=== PATIENT | female | born 1960 | race Caucasian/White ===

== ENCOUNTER 2019-06-27 10:10 | Emergency (ER) | payer OTHER ==
[~2019-06-27] VITALS: Ht 157.5 cm; Wt 63.1 kg
[2019-06-27] MEDS ORDERED: IV NORMAL SALINE 1000ML BAG 1,000 ML IV ONE ×3 (10:45→12:00)
[2019-06-27 10:57] LABS: BILIRUBIN,URINE NEGATIVE (NEG); CLARITY,URINE CLEAR; COLOR,URINE YELLOW; NITRITE,URINE NEGATIVE (NEG); PROTEIN,URINE NEGATIVE (NEG-TRACE); UROBILINOGEN,URINE 0.2 mg/dL (0.2 mg/dL)
[2019-06-27 11:06] LABS: SQUAMOUS EPITHELIAL CELL,UR FEW /LPF
[2019-06-27 11:07] LABS: BACTERIA,URINE 0 /HPF (0-FEW); WBC,URINE 0 /HPF (0-4)
[2019-06-27 11:11] LABS: BASO % 1 % (0-3); EOS # 0.1 x10^3/uL (0.0-0.7); EOS % 2 % (0-3); HEMOGLOBIN 15.7 g/dL (12.0-15.5); LYMPH # 2.1 x10^3/uL (1.0-4.8); LYMPH % 36 % (24-48); MEAN CORPUSCULAR HEMOGLOBIN 30 pg (25-35); MEAN CORPUSCULAR HGB CONC 35 g/dL (31-37); MEAN CORPUSCULAR VOLUME 85 fL (79-100); MONO # 0.3 x10^3/uL (0.0-1.1); MONO % 5 % (0-9); NEUT # 3.3 x10^3/uL (1.8-7.7); NEUT % 57 % (31-73); PLATELET COUNT 294 x10^3/uL (140-400); RED BLOOD COUNT 5.28 x10^6/uL (3.50-5.40); RED CELL DISTRIBUTION WIDTH 12.7 % (11.5-14.5); WHITE BLOOD COUNT 5.8 x10^3/uL (4.0-11.0)
[2019-06-27 11:13] LABS: ALBUMIN 4.1 g/dL (3.4-5.0); CALCIUM 9.3 mg/dL (8.5-10.1); CREATININE 1.1 mg/dL (0.6-1.0); GFR 51.2; POTASSIUM 3.8 mmol/L (3.5-5.1); TOTAL BILIRUBIN 0.6 mg/dL (0.2-1.0); TOTAL PROTEIN 8.2 g/dL (6.4-8.2)
--- NOTE | 2019-06-27 11:21 | PHYS DOC ---
Past Medical History Past Medical History: Depression, Diabetes-Type II, High Cholesterol, Hypertension, Kidney Stone Past Surgical History: Cholecystectomy Alcohol Use: Occasionally Drug Use: None Adult General Chief Complaint Chief Complaint: BLOOD SUGAR PROBLEM [facility] HPI Patient is a 59 year old female with history of type 2 diabetes, hypertension dyslipidemia presents with elevated blood sugar, dizziness fatigue, polyuria and polydipsia polydipsia. Symptoms began 3 weeks ago. Patient be feeling lightheaded and dizzy upon standing and had a syncopal episode. 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 A blood sugar values greater than 600 the patient was referred to the ED for further evaluation. Patient is prescribed metformin 750 mg twice daily, has not taken her medications in the past 2 months since she ran out. She denies headache, fever chills, vomiting, sweats abdominal pain. No other acute symptoms or complaints.. [] Review of Systems Review of Systems ROS as per HPI All other systems were reviewed and found to be within normal limits, except as documented in this note. Current Medications Current Medications Current Medications Medications (Trade) Dose Ordered Sig/Kp Start Time Stop Time Status Last Admin Dose Admin Sodium Chloride 1,000 ml @ 1,000 mls/hr 1X ONCE 06/27/19 12:00 06/27/19 12:59 DC 06/27/19 12:48 1,000 MLS/HR Allergies Allergies Allergies Coded Allergies Type Severity Reaction Last Updated Verified lisinopril Allergy Intermediate cough 06/27/19 Yes losartan Allergy Intermediate muscle cramps 06/27/19 Yes Physical Exam Physical Exam Constitutional: Well developed, well nourished, no acute distress, non-toxic appearance. [] HENT: Normocephalic, atraumatic, bilateral external ears normal, oropharynx moist, nose normal. [] Eyes: PERRLA, EOMI, conjunctiva normal. [] Neck: Normal range of motion, no tenderness, supple, no stridor. [] Cardiovascular:Heart rate regular rhythm, no murmur [] Lungs & Thorax: Bilateral breath sounds clear to auscultation [] Abdomen: Bowel sounds normal, soft, no tenderness, no masses, no pulsatile masses. [] Skin: Warm, dry, no erythema, no rash. [] Back: No tenderness, no CVA tenderness. [] Extremities: No tenderness, no edema. [] Neurologic: Alert and oriented X 3, normal motor function, normal sensory function, no focal deficits noted. [] Psychologic: Affect normal, judgement normal, mood normal. [] Current Patient Data Vital Signs Vital Signs Date Time Temp Pulse Resp B/P (MAP) Pulse Ox O2 Delivery O2 Flow Rate FiO2 06/27/19 10:13 98.4 72 18 135/61 (85) 96 Room Air 98.4 Lab Values Laboratory Tests Test 06/27/19 10:22 06/27/19 10:36 06/27/19 10:37 06/27/19 10:47 POC Urine HCG, Qualitative Hcg negative (Negative) Urine Collection Type Unknown Urine Color Yellow Urine Clarity Clear Urine pH 6.0 Urine Specific [place] >=1.030 Urine Protein Negative mg/dL (NEG-TRACE) Urine Glucose (UA) >=1000 mg/dL (NEG) Urine Ketones (Stick) 40 mg/dL (NEG) Urine Blood Trace (NEG) Urine Nitrite Negative (NEG) Urine Bilirubin Negative (NEG) Urine Urobilinogen Dipstick 0.2 mg/dL (0.2 mg/dL) Urine Leukocyte Esterase Negative (NEG) Urine RBC 1-2 /HPF (0-2) Urine WBC 0 /HPF (0-4) Urine Squamous Epithelial Cells Few /LPF Urine Bacteria 0 /HPF (0-FEW) Urine Mucus Slight /LPF Glucose (Fingerstick) 562 mg/dL (70-99) *H White Blood Count 5.8 x10^3/uL (4.0-11.0) Red Blood Count 5.28 x10^6/uL (3.50-5.40) Hemoglobin 15.7 g/dL (12.0-15.5) H Hematocrit 45.0 % (36.0-47.0) Mean Corpuscular Volume 85 fL (79-100) Mean Corpuscular Hemoglobin 30 pg (25-35) Mean Corpuscular Hemoglobin Concent 35 g/dL (31-37) Red Cell Distribution Width 12.7 % (11.5-14.5) Platelet Count 294 x10^3/uL (140-400) Neutrophils (%) (Auto) 57 % (31-73) Lymphocytes (%) (Auto) 36 % (24-48) Monocytes (%) (Auto) 5 % (0-9) Eosinophils (%) (Auto) 2 % (0-3) Basophils (%) (Auto) 1 % (0-3) Neutrophils # (Auto) 3.3 x10^3/uL (1.8-7.7) Lymphocytes # (Auto) 2.1 x10^3/uL (1.0-4.8) Monocytes # (Auto) 0.3 x10^3/uL (0.0-1.1) Eosinophils # (Auto) 0.1 x10^3/uL (0.0-0.7) Basophils # (Auto) 0.0 x10^3/uL (0.0-0.2) Sodium Level 129 mmol/L (136-145) L Potassium Level 3.8 mmol/L (3.5-5.1) Chloride Level 95 mmol/L (98-107) L Carbon Dioxide Level 25 mmol/L (21-32) Anion Gap 9 (6-14) Blood Urea Nitrogen 10 mg/dL (7-20) Creatinine 1.1 mg/dL (0.6-1.0) H Estimated GFR (Cockcroft-Gault) 51.2 BUN/Creatinine Ratio 9 (6-20) Glucose Level 538 mg/dL (70-99) *H Calcium Level 9.3 mg/dL (8.5-10.1) Total Bilirubin 0.6 mg/dL (0.2-1.0) Aspartate Amino Transferase (AST) 15 U/L (15-37) Alanine Aminotransferase (ALT) 23 U/L (14-59) Alkaline Phosphatase 119 U/L (46-116) H Troponin I Quantitative < 0.017 ng/mL (0.000-0.055) Total Protein 8.2 g/dL (6.4-8.2) Albumin 4.1 g/dL (3.4-5.0) Albumin/Globulin Ratio 1.0 (1.0-1.7) Test 06/27/19 12:50 Glucose (Fingerstick) 351 mg/dL (70-99) H Laboratory Tests 06/27/19 10:47 Laboratory Tests 06/27/19 10:47 EKG EKG [EKG: reviewed] Radiology/Procedures Radiology/Procedures [] Course & Med Decision Making Course & Med Decision Making Pertinent Labs and Imaging studies reviewed. (See chart for details) [3 L of normal saline given. Patient feels significantly improved. Blood sugar trending below 300. Will resume metformin referred to local PCP. Return precautions reviewed. Patient verbalizes understanding agreement discharge instructions prior to departure.] Dragon Disclaimer Dragon Disclaimer This electronic medical record was generated, in whole or in part, using a voice recognition dictation system. Departure Departure Impression: Primary Impression: Hyperglycemia Disposition: ADMITTED INPATIENT Condition: GUARDED Referrals: UNKNOWN PCP NAME (PCP) Patient Instructions: Hyperglycemia, [id number] Additional Instructions: Please fill and resume metformin and follow up with local PCP for re-evaluation and further management of blood sugar. Return to the ED if new or worsening symptoms. Scripts Metformin Hcl (METFORMIN HCL) 850 Mg Tablet 850 MG PO BIDWMEALS for ANTI-DIABETIC, #60 TAB 0 Refills Prov: OTTONIEL BUSTAMANTE DO 06/27/19 OTTONIEL BUSTAMANTE DO Jun 27, 2019 11:21
--- NOTE | 2019-06-27 12:42 | EKG ---
[address] [place] [address] Test Date: 2019-06-27 Test Time: 10:50:58 Pat Name: ANTONIO KERR Department: Room: Gender: F [employer]uke [employer]ic: : 1960 Requested By: OTTONIEL BUSTAMANTE Order Number: [id number] Reading MD: Measurements Intervals [place] Rate: 67 P: 29 MD: 160 QRS: 10 QRSD: 88 T: 41 QT: 450 QTc: 479 Interpretive Statements SINUS RHYTHM QRS(T) CONTOUR ABNORMALITY CONSIDER ANTEROSEPTAL MYOCARDIAL DAMAGE PROLONGED QT POSSIBLY ABNORMAL ECG RI6.01 Unconfirmed report No previous ECG available for comparison
[2019-06-27] MEDS ORDERED: METF850T8 PO (13:55)
[2019-06-27 14:00] VITALS: BP 127/71
== END 2019-06-27 14:21 | disposition other institution (70) ==
LOC: ER 10:10
DX: E11.65 Type 2 diabetes mellitus with hyperglycemia (principal); R42 Dizziness and giddiness; R55 Syncope and collapse; R53.83 Other fatigue; R63.1 Polydipsia; E78.00 Pure hypercholesterolemia, unspecified; I10 Essential (primary) hypertension; F32.9 Major depressive disorder, single episode, unspecified; Z87.442 Personal history of urinary calculi; Z88.8 Allergy status to other drugs, medicaments and biological substances
CPT/HCPCS: 36415; 80053; 81001; 81025; 82962; 84484; 85025; 93005; 96360; 96361; 99285; J7030